=== PATIENT | female | born 1950 | race Caucasian/White ===

== ENCOUNTER 2023-09-14 17:07 | Inpatient (IN) | payer MEDICARE, BC ==
[~2023-09-14] VITALS: Ht 167.6 cm; Wt 57.2 kg
[2023-09-14] MEDS: IV NS 0.9% 500 ML BAG IV ONE ×2 (17:45→20:55)
[2023-09-14] MEDS ORDERED: ONDANSETRON HCL/PF 4 MG/2 ML VIAL ONE (18:10)
[2023-09-14] MEDS ORDERED: MORPHINE SULFATE INJ 4 MG/ML DISP.SYRIN ONE (18:10)
[2023-09-14] MEDS ORDERED: FAMOTIDINE/PF INJ 20 MG/2 ML VIAL IV ONE (18:11)
[2023-09-14 18:13] LABS: BASOPHILS # (AUTO) 0.1 K/uL (0.0-0.2); BASOPHILS % (AUTO) 0.4 % (0.0-2.0); EOSINOPHILS # (AUTO) 0.1 K/uL (0.0-0.7); EOSINOPHILS % (AUTO) 0.9 % (0.0-6.0); HEMATOCRIT 48 % (33-45); HEMOGLOBIN 15.1 g/dL (11.5-14.8); LYMPHOCYTES # (AUTO) 0.7 K/uL (0.8-4.8); MEAN CORPUSCULAR HEMOGLOBIN 29 PG (26.0-33.0); MEAN CORPUSCULAR HGB CONC 31 g/dl (31.0-36.0); MEAN CORPUSCULAR VOLUME 92 fL (82-100); MONOCYTES # (AUTO) 0.1 K/uL (0.1-1.30); NEUTROPHILS # (AUTO) 13.1 K/uL (1.8-8.9); NEUTROPHILS % (AUTO) 92.7 % (43.0-81.0); PLATELET COUNT (AUTO) 262 K/uL (150-450); RED BLOOD CELL COUNT(AUTO) 5.26 MIL/uL (4.0-5.2); RED CELL DISTRIBUTION WIDTH 12.8 % (11.5-15.0); WHITE BLOOD COUNT (AUTO) 14.1 K/uL (4.3-11.0)
[2023-09-14] MEDS: MORPHINE SULFATE INJ 2 MG/ML DISP.SYRIN IV ONE ×2 (18:14→20:21)
[2023-09-14] MEDS: FAMOTIDINE/PF INJ 20 MG/2 ML VIAL IV ONE (18:15)
[2023-09-14] MEDS: ONDANSETRON HCL/PF 4 MG/2 ML VIAL IV ONE (18:16)
[2023-09-14 18:55] LABS: ALANINE AMINOTRANSFERASE 39 U/L (12-78); ALKALINE PHOSPHATASE 159 U/L (46-116); ASPARTATE AMINOTRANSFERASE 32 U/L (15-37); BILIRUBIN,DIRECT 0.3 mg/dL (0.0-0.2); BILIRUBIN,TOTAL 0.7 mg/dL (0.2-1.0); CALCIUM, SERUM 9.8 mg/dL (8.5-10.1); CARBON DIOXIDE 25 mmol/L (21-32); CHLORIDE 99 mmol/L (98-107); CREATININE 0.9 mg/dL (0.6-1.3); POTASSIUM 4.2 mmol/L (3.5-5.1); SODIUM SERUM 133 mmol/L (136-145); TOTAL PROTEIN, SERUM 7.7 g/dL (6.4-8.2); UREA NITROGEN, BLOOD 20 mg/dL (7-18)
[2023-09-14 18:56] LABS: GLUCOSE 408 mg/dL (74-106)
[2023-09-14 19:05] LABS: ALBUMIN 3.5 g/dL (3.4-5.0); LIPASE 30 U/L (16-77)
[2023-09-14 19:07] LABS: BAND % (MANUAL) 10 % (0.0-5.0); EOSINOPHILS % (MANUAL) 1 % (0-4); LYMPHOCYTES % (MANUAL) 7 % (16-48); MONOCYTES % (MANUAL) 1 % (0-11.0); NEUTROPHILS % (MANUAL) 81 (42-76)
[2023-09-14 19:08] LABS: ANISOCYTOSIS 1+; PLATELET ESTIMATE ADEQUATE
[2023-09-14] MEDS ORDERED: PIPERACI/TAZO 3.375GM/D5W 50ML PB IV ONE (20:00)
[2023-09-14] MEDS: PIPERACILLIN /TAZOBACTAM 4.5 G in IV D5W 50 ML IV ONE (20:09)
[2023-09-14] MEDS ORDERED: MORPHINE SULFATE INJ 2 MG/ML DISP.SYRIN ONE (20:16)
[2023-09-14] MEDS ORDERED: ASPIRIN 81 MG TAB.CHEW ONE (20:30)
[2023-09-14 20:36] LABS: LACTIC ACID 3.5 mmol/L (0.4-2.0)
[2023-09-14] MEDS: ASPIRIN 81 MG TAB.CHEW PO ONE (20:43)
[2023-09-14] MEDS ORDERED: ENOXAPARIN SODIUM 60 MG/0.6 ML DISP.SYRIN SQ ONE ×2 (20:48→21:22)
[2023-09-14] MEDS: ENOXAPARIN SODIUM 40 MG/0.4 ML DISP.SYRIN SQ ONE (20:55)
[2023-09-14 21:32] LABS: INR 1.03 (0.91-1.10); PARTIAL THROMBOPLASTIN TIME 25.3 SEC (24.3-34.3); PROTHROMBIN TIME 10.9 SECS (9.2-11.1)
[2023-09-14 21:45] VITALS: BP 148/73; TEMP 98.6; O2SAT 98
[2023-09-14] MEDS ORDERED: ACETAMINOPHEN 325 MG TABLET PO PRN (22:30)
[2023-09-14] MEDS: IV NS 0.9% 1,000 ML IV PRN (22:44)
[2023-09-14] MEDS ORDERED: DEXTROSE 50%-WATER 50 ML DISP.SYRIN IV PRN (23:00)
[2023-09-15] VITALS (7 sets, daily range): BP systolic 138–166; BP diastolic 60–80; TEMP 97.6–98.8; O2SAT 97–98
[2023-09-15] MEDS: MORPHINE SULFATE INJ 2 MG/ML DISP.SYRIN IV PRN (00:30)
[2023-09-15] MEDS ORDERED: PIPERACI/TAZO 3.375GM/D5W 50ML PB IV ONE (01:54)
[2023-09-15] MEDS: ZOSYN IVPB 3.375 G in IV D5W 50ml IV ONE (02:00)
[2023-09-15] MEDS: IV NS 0.9% 500 ML IV ONE (06:29)
[2023-09-15] MEDS: BLOOD SUGAR DIAGNOSTIC 1 EACH STRIP IN SCH (07:34)
[2023-09-15] MEDS: ASPIRIN 81 MG TAB.CHEW PO SCH (08:31)
[2023-09-15] MEDS: INSULIN REGULAR, HUMAN 100 UNIT/ML 3 ML VIAL SQ PRN (08:35)
[2023-09-15 09:10] LABS: BASOPHILS # (AUTO) 0.1 K/uL (0.0-0.2); BASOPHILS % (AUTO) 0.4 % (0.0-2.0); EOSINOPHILS # (AUTO) 0.3 K/uL (0.0-0.7); EOSINOPHILS % (AUTO) 1.6 % (0.0-6.0); HEMATOCRIT 41 % (33-45); HEMOGLOBIN 13.1 g/dL (11.5-14.8); LYMPHOCYTES # (AUTO) 1.7 K/uL (0.8-4.8); LYMPHOCYTES % (AUTO) 9.3 % (20.0-44.0); MEAN CORPUSCULAR HEMOGLOBIN 29 PG (26.0-33.0); MEAN CORPUSCULAR HGB CONC 32 g/dl (31.0-36.0); MEAN CORPUSCULAR VOLUME 91 fL (82-100); MONOCYTES # (AUTO) 1.1 K/uL (0.1-1.30); NEUTROPHILS # (AUTO) 15.3 K/uL (1.8-8.9); NEUTROPHILS % (AUTO) 82.7 % (43.0-81.0); PLATELET COUNT (AUTO) 202 K/uL (150-450); RED BLOOD CELL COUNT(AUTO) 4.47 MIL/uL (4.0-5.2); RED CELL DISTRIBUTION WIDTH 12.9 % (11.5-15.0); WHITE BLOOD COUNT (AUTO) 18.5 K/uL (4.3-11.0)
[2023-09-15 09:29] LABS: CALCIUM, SERUM 8.3 mg/dL (8.5-10.1); CARBON DIOXIDE 31 mmol/L (21-32); CHLORIDE 105 mmol/L (98-107); CREATININE 0.7 mg/dL (0.6-1.3); GLUCOSE 186 mg/dL (74-106); MAGNESIUM 1.7 mg/dL (1.8-2.4); PHOSPHORUS 3.6 mg/dL (2.5-4.9); POTASSIUM 3.5 mmol/L (3.5-5.1); SODIUM SERUM 142 mmol/L (136-145); UREA NITROGEN, BLOOD 9 mg/dL (7-18)
[2023-09-15] MEDS: PIPERACILLIN /TAZOBACTAM 3.375 G in IV D5W 100 ML IV SCH (09:30)
[2023-09-15 10:09] LABS: THYROID STIMULATING HORMONE 0.088 uIU/mL (0.358-3.74)
[2023-09-15] MEDS: Magnesium 1GM/D5W 100ML PREMIX 100 ML IV SCH (12:36)
[2023-09-15] MEDS ORDERED: DIGO125T PO (12:50)
[2023-09-15] MEDS ORDERED: PANT40TA49 PO (12:50)
[2023-09-15] MEDS ORDERED: APIX5TAB PO (12:50)
[2023-09-15] MEDS ORDERED: ATOR40TA PO (12:50)
[2023-09-15] MEDS ORDERED: LISI30TA4 PO (12:50)
[2023-09-15] MEDS ORDERED: METO-357 PO (12:50)
[2023-09-15] MEDS: ONDANSETRON HCL/PF 4 MG/2 ML VIAL IVP PRN (14:06)
[2023-09-15] MEDS: ATORVASTATIN 40 MG TABLET PO SCH (15:24)
[2023-09-15] MEDS: PANTOPRAZOLE 40 MG TABLET.DR PO SCH (15:24)
[2023-09-15] MEDS: LISINOPRIL (10MG) 10 MG TABLET PO SCH (15:24)
[2023-09-15] MEDS: METOPROLOL SUCCINATE 50 MG TAB.SR.24H PO SCH (16:02)
[2023-09-15] MEDS: DIGOXIN 0.125 MG TABLET PO SCH (16:02)
[2023-09-15] MEDS: IV NS 0.9% 1,000 ML IV PRN (18:02)
[2023-09-16] VITALS: BP 146/74; TEMP 98.2; O2SAT 98
[2023-09-16 04:00] VITALS: BP 148/72; TEMP 98.4; O2SAT 98
[2023-09-16 06:51] LABS: APPEARANCE,URINE CLEAR (CLEAR); BILIRUBIN,URINE NEGATIVE (NEGATIVE); BLOOD, URINE NEGATIVE Ery/uL (NEGATIVE); COLOR,URINE YELLOW (YELLOW); KETONES,URINE NEGATIVE (NEGATIVE); LEUKOCYTE ESTERASE ,URINE NEGATIVE (NEGATIVE); NITRITE, URINE NEGATIVE (NEGATIVE); PH,URINE 7.5 (5.0-8.0); PROTEIN,URINE NEGATIVE (NEGATIVE); UGLUCOSE 1+ mg/dL (NEGATIVE); UROBILINOGEN,URINE 0.2 EU/dL (0.2)
[2023-09-16 06:53] LABS: ADD URINE CULTURE NO; BACTERIA,URINE None seen /HPF (None Seen); RBC,URINE 0-2 /HPF (0-2); SQUAMOUS EPITHELIAL CELL,UR Rare /HPF (None Seen); WBC,URINE 0-2 /HPF (0-3)
[2023-09-16 08:00] VITALS: BP 157/71; TEMP 98.4; O2SAT 98
[2023-09-16 10:09] LABS: BASOPHILS # (AUTO) 0.1 K/uL (0.0-0.2); BASOPHILS % (AUTO) 0.5 % (0.0-2.0); EOSINOPHILS # (AUTO) 0.6 K/uL (0.0-0.7); EOSINOPHILS % (AUTO) 4.9 % (0.0-6.0); HEMATOCRIT 46 % (33-45); HEMOGLOBIN 14.5 g/dL (11.5-14.8); LYMPHOCYTES # (AUTO) 1.8 K/uL (0.8-4.8); LYMPHOCYTES % (AUTO) 13.5 % (20.0-44.0); MEAN CORPUSCULAR HEMOGLOBIN 29 PG (26.0-33.0); MEAN CORPUSCULAR HGB CONC 32 g/dl (31.0-36.0); MEAN CORPUSCULAR VOLUME 92 fL (82-100); MONOCYTES # (AUTO) 0.9 K/uL (0.1-1.30); MONOCYTES % (AUTO) 6.8 % (2.0-12.0); NEUTROPHILS # (AUTO) 9.8 K/uL (1.8-8.9); NEUTROPHILS % (AUTO) 74.3 % (43.0-81.0); PLATELET COUNT (AUTO) 221 K/uL (150-450); RED BLOOD CELL COUNT(AUTO) 4.98 MIL/uL (4.0-5.2); WHITE BLOOD COUNT (AUTO) 13.2 K/uL (4.3-11.0)
[2023-09-16 10:23] LABS: CALCIUM, SERUM 8.4 mg/dL (8.5-10.1); CREATININE 0.9 mg/dL (0.6-1.3); POTASSIUM 3.9 mmol/L (3.5-5.1)
[2023-09-16] MEDS: METFORMIN 500 MG TABLET PO SCH (11:42)
[2023-09-16 12:00] VITALS: BP 157/71; TEMP 98.4; O2SAT 98
[2023-09-16 16:00] VITALS: BP 149/75; TEMP 97.5; O2SAT 98
[2023-09-16] MEDS: NATEGLINIDE 60 MG TABLET PO SCH (17:17)
[2023-09-16] MEDS ORDERED: CEFTRIAXONE 1 G VIAL IV SCH (18:00)
[2023-09-16] MEDS: VANCOMYCIN HCL 125 MG/2.5 ML ORAL.SUSP PO SCH (18:54)
[2023-09-16] MEDS: METRONIDAZOLE 500MG/ NS 100ML 500 MG in PREMIX 1 EA IV SCH (18:55)
[2023-09-16] MEDS: CEFTRIAXONE 1 G in IV D5W 50 ML IV SCH (18:55)
[2023-09-16 20:00] VITALS: BP 156/77; TEMP 98.1; O2SAT 94
[2023-09-17 02:06] VITALS: O2SAT 97
[2023-09-17 04:00] VITALS: BP 138/78; TEMP 98.4; O2SAT 98
[2023-09-17 07:12] LABS: BASOPHILS # (AUTO) 0.1 K/uL (0.0-0.2); BASOPHILS % (AUTO) 0.7 % (0.0-2.0); EOSINOPHILS # (AUTO) 0.7 K/uL (0.0-0.7); EOSINOPHILS % (AUTO) 7.1 % (0.0-6.0); HEMATOCRIT 42 % (33-45); LYMPHOCYTES # (AUTO) 2.1 K/uL (0.8-4.8); LYMPHOCYTES % (AUTO) 20.2 % (20.0-44.0); MEAN CORPUSCULAR HEMOGLOBIN 30 PG (26.0-33.0); MEAN CORPUSCULAR HGB CONC 33 g/dl (31.0-36.0); MEAN CORPUSCULAR VOLUME 90 fL (82-100); MONOCYTES # (AUTO) 0.7 K/uL (0.1-1.30); MONOCYTES % (AUTO) 6.6 % (2.0-12.0); NEUTROPHILS # (AUTO) 6.7 K/uL (1.8-8.9); NEUTROPHILS % (AUTO) 65.4 % (43.0-81.0); PLATELET COUNT (AUTO) 206 K/uL (150-450); RED BLOOD CELL COUNT(AUTO) 4.64 MIL/uL (4.0-5.2); RED CELL DISTRIBUTION WIDTH 12.7 % (11.5-15.0); WHITE BLOOD COUNT (AUTO) 10.2 K/uL (4.3-11.0)
[2023-09-17 08:03] LABS: OCCULT BLOOD STOOL POSITIVE (NEGATIVE)
[2023-09-17] MEDS: hydrALAZINE HCL 25 MG TABLET PO ONE (11:56)
[2023-09-17] MEDS: DICYCLOMINE HCL 10 MG CAPSULE PO SCH (11:56)
[2023-09-17 12:00] VITALS: BP 186/89; TEMP 97.7; O2SAT 96
[2023-09-17] MEDS ORDERED: HYDR-4076 PO (12:18)
[2023-09-17] MEDS ORDERED: METR-147 PO (12:18)
[2023-09-17] MEDS ORDERED: CIPR500T5 PO (12:18)
[2023-09-17] MEDS ORDERED: DICY10CA37 PO (12:18)
[2023-09-17] MEDS ORDERED: NATEGLINIDE PO (12:18)
[2023-09-17 15:18] VITALS: O2SAT 98
[2023-09-17 20:00] VITALS: BP 159/63; TEMP 98; O2SAT 96
[2023-09-18 04:00] VITALS: BP 163/71; TEMP 98; O2SAT 96
[2023-09-18 08:00] VITALS: BP 142/86; TEMP 98.3; O2SAT 94
[2023-09-18 08:44] VITALS: BP 142/86
== END 2023-09-18 10:51 | disposition home or self-care (01) | DRG 872 ==
LOC: ER 17:16 → TELE1 20:48 → MEDSG1 09-16 10:50
PROVIDERS: ADMIT Nurse Practitioner Acute Care; ATTEND Internal Medicine
DX: A41.9 Sepsis, unspecified organism (principal); K56.7 Ileus, unspecified; E87.1 Hypo-osmolality and hyponatremia; I47.10 Supraventricular tachycardia, unspecified; E87.20 Acidosis, unspecified; K52.9 Noninfective gastroenteritis and colitis, unspecified; I25.10 Atherosclerotic heart disease of native coronary artery without angina pectoris; Z95.810 Presence of automatic (implantable) cardiac defibrillator; Z95.5 Presence of coronary angioplasty implant and graft; Z90.49 Acquired absence of other specified parts of digestive tract; Z79.899 Other long term (current) drug therapy; Z88.6 Allergy status to analgesic agent; E86.0 Dehydration; E11.43 Type 2 diabetes mellitus with diabetic autonomic (poly)neuropathy; K31.84 Gastroparesis; E11.65 Type 2 diabetes mellitus with hyperglycemia; I10 Essential (primary) hypertension; E78.5 Hyperlipidemia, unspecified; Z79.01 Long term (current) use of anticoagulants
CPT/HCPCS: 36415; 71045-TC; 80048-TC; 80076-TC; 81001; 82010-TC; 82272-TC; 82962-TC; 83605-TC; 83690-TC; 83735-TC; 83880; 84100-TC; 84439-TC; 84443-TC; 84484-TC; 85025-TC; 85730-TC; 87040-TC; 87086-TC; 87177; 87209; 89055; 93307-TC; 94760-TC; 94799-TC; A4216; A4223; G0378; J0696; J1650; J1815; J2270; J2405; J2543; J3475; J3490; J7030; J7040; J7050; J7060